=== PATIENT | male | born 1945 | race Caucasian/White ===

== ENCOUNTER 2022-11-18 05:53 | Outpatient (CLI) | payer MEDICARE, SELFPAY | END 2022-11-18 05:54 | disposition home or self-care (01) | LOC: AMB 11-25 05:48 | PROVIDERS: PCP Family Medicine; Visit Provider Family Medicine | DX: R53.1 Weakness (principal); R42 Dizziness and giddiness | CPT/HCPCS: A0425; A0429 ==